=== PATIENT | female | born 1965 | race Asian ===

== ENCOUNTER → 2017-09-30 13:39 | Outpatient (CLI) | payer OTHER, SELFPAY ==
--- NOTE | 2017-10-01 15:48 | DI.NM.S_ITS ---
DATE OF SERVICE: 09/30/2017 PROCEDURE: Exercise perfusion study. INDICATION: Normal exercise stress test, exertional shortness of breath, chest pain, hypertension, borderline diabetes mellitus. RADIOPHARMACEUTICAL: 26.7 mCi technetium-99m Myoview IV was injected at stress, and 25.3 mCi technetium-99m Myoview IV was injected at rest. CARDIAC STRESS: Patient underwent exercise perfusion study under the supervision of an attending staff. Dr. Alvarenga supervised the exercise stress test. Patient walked on Cory protocol for about 6 minutes 33 seconds and achieved 82% of target heart rate with normal blood pressure response. She achieved 7 METS of workload. Functional aerobic impairment +15%. During exercise, patient developed anginal type of chest pain, shortness of breath. Baseline EKG revealed sinus rhythm. During stress, patient developed significant ST depression up to 4 mm, which is horizontal as well as downsloping involving inferior leads as well as lead V3 to V6 and some ST depression in lead 1. There appears to be 1- to 2-mm ST elevation in lead AVR and V1 to V2 as well. In recovery, ST elevation got better. Diffuse ST depression lasted more than 7 minutes. I was told that patient was given nitroglycerine as well. RAW DATA: There appears to be subdiaphragmatic activity. Breast shadow was seen. GATED STUDY: Resting LV ejection fraction 71% and stress LV ejection fraction 56% with some [id number]-luqyat anterior wall hypokinesis. TID ratio 1.20, which is upper limit of normal. However, on my visual inspection, there appears to be some transient ischemic dilatation. Resting end-diastolic volume 77 mL. Lung/heart ratio was 0.4, which is within normal limits. MYOCARDIAL PERFUSION SCAN: Stress supine, resting supine, and stress prone images were compared to each other. It appears to be that patient has moderate- sized moderately severe reversible perfusion defect involving tym-he-mhlaxe anterior wall, anterior apex, as well as distal anterior septum, suggestive of occlusive at least mid LAD disease. CONCLUSION: This is an abnormal myocardial perfusion study consistent with [id number] reversible ischemia of pay-us-hbpqlp anterior wall, anterior apex, distal anterior septum, suggestive of likely significantly occlusive mid LAD disease. Patient has grossly abnormal exercise EKG stress test with significant ST depression in inferior leads as well as lead V3 to V6 and L1 and transient ST elevation in lead AVR and V1 to V2. No significant arrhythmias seen. Based on EKG changes, I cannot rule out possibility of left main disease as well. However, on perfusion scan, I am not seeing perfusion defect in circumflex or RCA distribution. I called patient's PCP, Jozef Nicole CNP, at phone number [phone] and left a message to the answering machine. I will recommend this patient come to the hospital and transfer to the facility where she can have left heart catheterization in anticipation of revascularization. DylanTierra - CLINICAL PROGRAM CONSULTANT/liliana/kv doc#: [id number]/job#: [id number] dd: 10/01/2017 12:46:00 dt: 10/01/2017 14:17:00 DICTATING MD/COPIES TO: Braydon Norotn MD ; Jozef Nicole CNP COPIES MNE: SEGUNDO WILLIAMSON
== END ==
PROVIDERS: Visit Provider Registered Nurse Diabetes Educator
DX: R06.02 Shortness of breath (principal); R07.9 Chest pain, unspecified; I10 Essential (primary) hypertension; R73.03 Prediabetes
CPT/HCPCS: 78452; 93016; 93017; 93018; A9502

== ENCOUNTER → 2019-08-11 08:10 | Outpatient (CLI) | payer OTHER, MEDICAID, SELFPAY ==
--- NOTE | 2019-08-12 12:47 | DI.NM.S_ITS ---
DATE OF SERVICE: 08/11/2019 PROCEDURE PERFORMED:: Exercise treadmill stress and rest myocardial perfusion imaging with gating to assess ejection fraction and regional wall motion, performed as a one day protocol. ORDERING PROVIDER:: Dr. Mina Hernández. INDICATIONS:: The patient is a 54-year-old female with a history of coronary artery bypass grafting with recurrent chest discomfort and presyncope. EXERCISE TREADMILL TESTING:: The patient was able to exercise for 6 minutes 34 seconds on a standard Cory protocol suggesting mild-moderately reduced exercise capacity with an RENETTA of +15%.. She had a normal heart rate and blood pressure response to exercise, achieving a maximum heart rate of 149 bpm (89% of her predicted maximum). She had no chest discomfort or other anginal symptom. Her resting ECG shows sinus rhythm with minimal ST-segment abnormality. With exercise, she develops 1.5-2.[address] depression in inferolateral leads, which could be consistent with ischemia. However, these abnormalities fairly promptly resolve in recovery with near complete resolution by 2 minutes in recovery, although with some slight return late in recovery. She had one ventricular triplet, but no other arrhythmias. Her oxygen saturation remained 98-100% throughout the study. At 5 minutes, 49 seconds of exercise, at a heart rate of 140 bpm, 26.6mCi of technetium-99m Myoview was injected. Earlier in the day, she had been injected with 10.5 mCi of technetium-99m Myoview at rest and was imaged 30 minutes later, again using a gated SPECT acquisition protocol. FINDINGS: 1. RAW DATA: There is fairly good myocardial tracer uptake with minimal breast shadows noted. The lung/heart ratio was normal at 0.28. The TID ratio is at the upper limits of normal at 1.16, although is not evident visually. 2. QUANTITATED GATED SPECT: Post-stress ejection fraction is estimated at 88% without any focal wall motion abnormality and specifically the distal anterior wall appears to have brisk contractility. The resting ejection fraction is estimated at 93%, likely an overestimate because of small left ventricular volumes with a resting end-diastolic volume of 56 mL. 3. MYOCARDIAL PERFUSION IMAGING: Post-stress supine images are fairly normal, although with a very subtle defect in the distal third of the anterior wall, sparing the apex which could reflect breast attenuation artifact, supported by its complete resolution on the prone images which reveal a completely normal perfusion pattern without any perfusion defects. The resting images show a similar perfusion pattern to that of the post-stress supine images although the distal anterior defect is slightly less prominent. CONCLUSION:: 1. Probable normal myocardial perfusion study. 2. Fairly small, subtle, predominantly fixed but slightly reversible distal anterior perfusion defect that completely resolves on prone imaging and thus suggesting probable breast attenuation artifact. While a small transmural myocardial infarction with slight reed-infarct ischemia cannot be entirely excluded, the absence of any perfusion defect on the prone images and the absence of any wall motion abnormality would mitigate against this. 3. Normal left ventricular systolic function without any focal wall motion abnormality with relatively small left ventricular volumes. Transient ischemic dilation ratio is at the upper limits of normal at 1.16. 4. Mild-moderately reduced exercise capacity without angina. There is moderate ST-segment deviation which could be consistent with ischemia, but given the perfusion images likely reflects a false-positive. Clinical correlation is recommended. A single ventricular triplet was noted, but no other arrhythmias. Tierra Richardson - TREVIN/liliana/lara doc#: [id number]/job#: [id number] dd: 08/12/2019 11:39:00 dt: 08/12/2019 12:03:00 DICTATING MD/COPIES TO: Frank Ann MD; PIPE Vides; Mina Hernández MD COPIES MNE: JOEL; ;
== END ==
PROVIDERS: Referring Provider Internal Medicine Cardiovascular Disease; Visit Provider Internal Medicine Cardiovascular Disease
DX: R07.89 Other chest pain (principal); R55 Syncope and collapse; Z95.1 Presence of aortocoronary bypass graft
CPT/HCPCS: 78452; 93017; A9502